=== PATIENT | male | born 1965 | race African-American/Black ===

== ENCOUNTER 2017-04-05 11:53 | Emergency (ER) | payer MEDICARE, MEDICAID ==
--- NOTE | 2017-04-05 13:33 | RAD ---
PORTABLE AP CHEST RADIOGRAPH: Date: 04-05-17 History: Chest pain. Comparison: 10-22-13 FINDINGS: Single lead left subclavian AICD device remains in place. Post-surgical change related to median ster notomy are noted. There is a metallic density overlying the left lung base and cardiac silhouette whi ch may represent a ventricular assist device. Cardiac silhouette is mildly enlarged. There is increas e parenchymal density at the left lung base which is most likely attributable to atelectasis. The sofía gs are otherwise clear. Pulmonary vasculature shows interval change. IMPRESSION: 1. Atelectasis left lung base, otherwise there is no acute cardiopulmonary process. 2. Mild cardiomegaly without overt CHF. POS: [facility]
[2017-04-05 13:46] LABS: #Eosinphils 0.2 thou/uL (0.0-0.7); #Lymphocytes 0.6 thou/uL (1.20-3.40); #Monocytes 0.4 thou/uL (0.11-0.59); %Eosinophils 2.6 % (0.0-10.0); %Lymphocytes 9.4 % (21.0-51.0); %Monocytes 6.8 % (0.0-10.0); %Neutrophils 81.2 % (42.0-75.0); Hemoglobin 12.4 g/dL (14.0-18.0); Mean Corpuscular HGB CONC 31.2 g/dL (32.0-36.0); Mean Corpuscular Hemoglobin 28.8 pg (27.0-31.0); Mean Corpuscular Volume 92.1 fl (80.0-94.0); Mean Platelet Volume 7.6 fL (7.4-10.4); Platelet Count 301 thou/uL (130-400); RBC Distribution Width 13.8 % (11.5-14.5); Red Blood Cell (RBC) Count 4.32 mill/uL (4.70-6.10); White Blood Cell (WBC) Count 6.2 thou/uL (4.8-10.8)
[2017-04-05 13:52] LABS: INR-International Normal Ratio 2.5; Prothrombin Time 27.7 SEC (12.0-14.7)
[2017-04-05 14:07] LABS: Anion Gap 12 mmol/L (10-20); BUN (Urea Nitrogen) 24 mg/dL (8.4-25.7); CK (CPK) 149 U/L (30-200); Calc. Creatinine Clearance 0 mL/min (70-130); Calcium 9.3 mg/dL (7.8-10.44); Carbon Dioxide 24 mmol/L (22-29); Chloride 107 mmol/L (98-107); Estimated GFR-MDRD 54; Glucose 137 mg/dL (70-105); Potassium 4.2 mmol/L (3.5-5.1); Sodium 139 mmol/L (136-145)
[2017-04-05 14:12] LABS: CKMB 4.8 ng/mL (0-6.6); Troponin I 0.067 ng/mL (< 0.028)
== END 2017-04-05 17:38 | disposition home or self-care (01) ==
LOC: ERS 11:53
DX: T82.198A Other mechanical complication of other cardiac electronic device, initial encounter (principal); I44.7 Left bundle-branch block, unspecified
CPT/HCPCS: 71045; 80048; 82553; 83735; 84484; 85025; 85610; 93005